=== PATIENT | female | born 1980 | race Caucasian/White ===

== ENCOUNTER 2017-03-27 18:32 | Emergency (ER) | payer OTHER ==
[~2017-03-27] VITALS: Ht 167.6 cm; Wt 99.8 kg
[~2017-03-27 18:32] MED LIST: ACETAMINOPHEN-120 ML PO; ACTONEL; ALPRAZOLAM ER1 MG PO; AMITIZA 24 MCG24 MC1 PO; APAP/CODEINE ELI5 M1 OR; AZITHROMYCIN 2250 MG PO; CALTRATE-600 W1 EACH PO; CENTRUM SILVER1 EACH PO; CHERACOL COUGH120 ML PO; CIPROFLOXACIN500 M1 PO; CLONAZEPAM 1 MG1 M1 PO; CYMBALTA60 MG PO; DIOVAN160 MG PO; ESTER-C500 M1 PO; FISHOIL; GAVISCON500 MG PO; GLUCOSAMINE &1 EACH PO; GLUMETZA500 PO; IBUPROFEN 600600 M1 PO; JANUVIA100 MG PO; LEVOXYL75 MCG PO; LYRICA; METROGEL-VAGINA70 GM VG; MUCINEX600 MG PO; NEXIUM40 MG PO; NORCO 5-325 TA1 EACH PO; NORFLEX100 MG PO; PHENERGAN 25 MG25 M1 PO; PROAIR HFA8.5 GM IH; PROVENTIL HFA6.7 G1 INH; PROZAC20 MG PO; ROBAFEN AC SYR120 ML PO; SEROQUEL XR 30300 MG; SEROQUEL XR150 MG PO; SYNTHROID137 MCG PO; VENTOLIN HFA 1818 GM INH; VITAMIN D400 UNI1 PO; WELCHOL 625 MG625 MG PO; ZANTAC 150MG T150 M1 PO; ZPAK PO; [UNRECOGNIZED DRUG - OTHER] TP; lacrilube; metanx
[2017-03-27] MEDS ORDERED: NAPROSYN500 MG PO ×2 (21:23→21:24)
[2017-03-27 21:25] VITALS: BP 133/81
[2017-03-27] MEDS ORDERED: HYDROCODONE-AP1 EAC6 PO (21:27)
== END 2017-03-27 21:31 | disposition home or self-care (01) ==
LOC: ER 18:32
DX: S83.91XA Sprain of unspecified site of right knee, initial encounter (principal); E03.9 Hypothyroidism, unspecified; F17.200 Nicotine dependence, unspecified, uncomplicated; F10.99 Alcohol use, unspecified with unspecified alcohol-induced disorder; F12.10 Cannabis abuse, uncomplicated; Z90.49 Acquired absence of other specified parts of digestive tract; Z98.890 Other specified postprocedural states; V89.2XXA Person injured in unspecified motor-vehicle accident, traffic, initial encounter; Y93.89 Activity, other specified; Y92.89 Other specified places as the place of occurrence of the external cause; Y99.8 Other external cause status

== ENCOUNTER 2019-01-25 05:34 | Emergency (ER) | payer OTHER ==
[~2019-01-25] VITALS: Ht 167.6 cm; Wt 117.9 kg
[~2019-01-25 05:34] MED LIST changes: +HYDROCODONE-AP1 EAC6 PO; +NAPROSYN500 MG PO
[2019-01-25 06:29] LABS: HEMATOCRIT 27.6 % (37.0-47.0); HEMOGLOBIN 8.1 gm/dL (12.0-15.0); MCH 16.8 pg (26.0-34.0); MCHC 29.3 g/dL (28.0-37.0); MCV 57.4 fL (80.0-100.0); PLATELET COUNT 347 thou/uL (150-400); RBC 4.82 mil/uL (4.20-5.00); RDW 19.3 % (10.5-14.5); WBC 6.9 thou/uL (4.0-11.0)
[2019-01-25 06:32] LABS: ANION GAP 9 mmol/L (7-16); BUN 11 mg/dL (7-18); CALCIUM 8.6 mg/dL (8.5-10.1); CHLORIDE 103 mmol/L (98-107); CO2 25 mmol/L (21-32); CREATININE 0.7 mg/dL (0.6-1.0); GLUCOSE 111 mg/dL (74-106); POTASSIUM 3.1 mmol/L (3.5-5.1); SODIUM 137 mmol/L (136-145)
[2019-01-25 06:38] LABS: ALBUMIN 3.5 g/dL (3.4-5.0); LIPASE 100 U/L (73-393); SGOT 12 U/L (15-37); SGPT 16 U/L (30-65); TOTAL BILIRUBIN < 0.1 mg/dL (<0.1-1.0); TOTAL PROTEIN 7.6 g/dL (6.4-8.2)
[2019-01-25 07:33] LABS: URINE BILIRUBIN NEGATIVE (Negative); URINE BLOOD NEGATIVE (Negative); URINE COLOR YELLOW; URINE GLUCOSE-RANDOM* NEGATIVE (Negative); URINE KETONES TRACE (Negative); URINE LEUKOCYTES-REFLEX NEGATIVE (Negative); URINE NITRITE-REFLEX NEGATIVE (Negative); URINE PROTEIN (DIPSTICK) NEGATIVE (Negative); URINE SPECIFIC GRAVITY 1.025 (1.005-1.035); URINE UROBILINOGEN 0.2 E.U./dl (0.2-1.0)
[2019-01-25 07:34] LABS: URINE CLARITY HAZY
[2019-01-25 07:53] LABS: ABSOLUTE NEUTROPHILS 4.8 thou/uL (1.4-8.2); NUCLEATED RBCS 1 /100WBC
[2019-01-25 07:54] LABS: ANISOCYTOSIS 2+; HYPOCHROMASIA 3+; MICROCYTES 3+; OVALOCYTES FEW
[2019-01-25] MEDS ORDERED: LOPERAMIDE 2 MG2 M1 PO (09:58)
[2019-01-25] MEDS ORDERED: PHENERGAN 25 MG25 MG PO (09:58)
[2019-01-25 10:16] VITALS: BP 122/65
== END 2019-01-25 10:30 | disposition home or self-care (01) ==
LOC: ER 05:34
PROVIDERS: Emergency Medicine
DX: K52.9 Noninfective gastroenteritis and colitis, unspecified (principal); E03.9 Hypothyroidism, unspecified; Z90.49 Acquired absence of other specified parts of digestive tract

== ENCOUNTER 2021-04-05 00:21 | Emergency (ER) | payer OTHER ==
[~2021-04-05] VITALS: Ht 167.6 cm; Wt 108.9 kg
--- NOTE | ~2021-04-05 | EMS ---
[address] [address] EMS Patient Care Report Name: YONY MUNOZ Room #: PRE [place]#: [id number] Admission: Attend Phys: Discharge: Date of : 80 Report #: [id number] THIS REPORT FOR: //name// Report Transmitted: 04/04/2021 23:53 EMS Care Summary [place], [place]/[facility] Incident [id number] @ 04/04/2021 23:50 Incident Location [address] [place] [address] Patient YONY MUNOZ Female, 40 Years 1980 Patient Address [address] [place], [place] [id number] Patient History Bipolar II Disorder,Anxiety, Patient Allergies No known allergies, Patient Medications Xanax, Chief Complaint ABDOMINAL PAIN Disposition Transported No Lights/[place] Dispatch Reason Sick Person Transported To [facility] Narrative M528 ARRIVES TO FIND 40 Y/O F PT COMPLAINING OF A SUDDEN ONSET OF NAUSEA, VOMITING, DIARRHEA, AND ABDOMINAL PAIN. [address] [address] EMS Patient Care Report Name: YONY MUNOZ Room #: [facility].R.#: [id number] Admission: Attend Phys: Discharge: Date of : 80 Report #: [id number] ASSESSMENTS AND TREATMENTS NOTED. PT AMBULATORY AND WAKS TO AMBULANCE. PT SECURED TO COT. PT TRANSPORTED. M528 ARRIVES AT DESTINATION. PT AMBULATORY AND WALKS TO BED IN ROOM AT DESTINATION. PT CARE TRANSFERRED. M528 RETURNS TO SERVICE. Initial Vitals @00:02P: 84,BP: 116/72,CO: 2,SpO2: 96, @00:00P: 89,R: 18,BP: 127/76,Pain: 7/10,GCS: 15,Glucose: 160,CO: 1,SpO2: 97,Revised Trauma: 12, @00:06P: 87,R: 18,BP: 111/70,Pain: 7/10,GCS: 15,CO: 3,SpO2: 96,Revised Trauma: 12, Assessments @00:15MENTAL:No Abnormalities,SKIN:No Abnormalities,HEENT:Head/Face: No Abnormalities,Eyes: No Abnormalities,Neck/Airway: No Abnormalities,LUNG SOUNDS:General: Nausea,Left Upper: Tenderness,Right Lower: Tenderness,Left Lower: Tenderness,Right Upper: Tenderness,ABDOMEN:General: Nausea,Left Upper: Tenderness,Right Lower: Tenderness,Left Lower: Tenderness,Right Upper: Tenderness,PELVIS//GI:No Abnormalities,EXTREMITIES:Left Arm: No Abnormalities,Right Arm: No Abnormalities,Left Leg: No Abnormalities,Right Leg: No Abnormalities,PULSE:NEURO:No Abnormalities,@00:00MENTAL:Person Oriented,Event Oriented,Time Oriented,Place Oriented,SKIN:HEENT:LUNG SOUNDS:General: Vomiting,General: Diarrhea,General: Nausea,Left Upper: Tenderness,Right Lower: Tenderness,Right Upper: Tenderness,Left Lower: Tenderness,ABDOMEN:General: Vomiting,General: Diarrhea,General: Nausea,Left Upper: Tenderness,Right Lower: Tenderness,Right Upper: Tenderness,Left Lower: Tenderness,PELVIS//GI:EXTREMITIES:PULSE:NEURO: Impression Abdominal Pain Procedures @00:00ALS AssessmentResponse: UnchangedSucceeded@00:05Saline Lock 0cc (20 ga) Site: Hand-LeftResponse: UnchangedSucceeded@00:003-Lead ECGResponse: UnchangedSucceeded@00:08Zofran - 4 Milligrams (mg) - Intravenous (IV)Response: Unchanged Timeline 23:47,Call Received 23:47,Dispatch Notified 23:50,Dispatched 23:52,En Route 23:57,On Scene 00:00,At Patient 00:00,ALS Assessment,Response: UnchangedSucceeded, 00:00,3-Lead ECG,Response: UnchangedSucceeded, [address] [address] EMS Patient Care Report Name: YONY MUNOZ Room #: PRE M.R.#: [id number] Admission: Attend Phys: Discharge: Date of : 80 Report #: [id number] 00:00,BP: 127/76 M,PULSE: 89,RR: 18 R,SPO2: 97 Ox,ETCO2: ,B,PAIN: 7,GCS: 15, 00:02,BP: 116/72 M,PULSE: 84,RR: R,SPO2: 96 Ox,ETCO2: ,BG: ,PAIN: ,GCS: , 00:05,Saline Lock 0cc 20 ga Site: Hand-Left,Response: UnchangedSucceeded, 00:06,BP: 111/70 M,PULSE: 87,RR: 18 R,SPO2: 96 Ox,ETCO2: ,BG: ,PAIN: 7,GCS: 15, 00:08,Zofran - 4 Milligrams (mg) - Intravenous (IV),Response: Unchanged 00:09,Depart Scene 00:17,At Destination 00:28,Call Closed Disclaimer v1.1 Copyright 2020 [employer] This EMS Care Summary contains data elements from the applicable legal record (which may be displayed differently). It is designed to provide pertinent information for the following purposes: continuity of care, clinical quality, and state data reporting. The complete legal record is available to ED staff and administrators of the receiving hospital in [employer]'s Patient Tracker. All data is provided "as is."
[~2021-04-05 00:21] MED LIST changes: +LOPERAMIDE 2 MG2 M1 PO; +PHENERGAN 25 MG25 MG PO
[2021-04-05] MEDS ORDERED: XANAX XR1 MG PO (00:35)
[2021-04-05 00:36] LABS: ABSOLUTE NEUTROPHILS 9.6 thou/uL (1.4-8.2); BASOPHILS 0.7 % (0.0-2.0); EOSINOPHILS 0.7 % (0.0-3.0); HEMOGLOBIN 8.1 gm/dL (12.0-15.0); LYMPHOCYTES 13.8 % (24.0-44.0); MCH 16.9 pg (26.0-34.0); MCHC 28.8 g/dL (28.0-37.0); MCV 58.7 fL (80.0-100.0); MONOCYTES 4.1 % (1.0-8.0); PLATELET COUNT 468 thou/uL (150-400); POLYS 80.7 % (36.0-66.0); RBC 4.77 mil/uL (4.20-5.00); RDW 19.3 % (10.5-14.5); WBC 11.9 thou/uL (4.0-11.0)
[2021-04-05 00:53] LABS: CALCIUM 8.2 mg/dL (8.5-10.1); CREATININE 0.8 mg/dL (0.6-1.0); POTASSIUM 3.4 mmol/L (3.5-5.1)
[2021-04-05 00:59] LABS: ALBUMIN 3.1 g/dL (3.4-5.0); TOTAL BILIRUBIN 0.2 mg/dL (0.2-1.0); TOTAL PROTEIN 7.1 g/dL (6.4-8.2)
[2021-04-05 01:50] LABS: URINE BILIRUBIN NEGATIVE (Negative); URINE BLOOD NEGATIVE (Negative); URINE CLARITY CLOUDY; URINE COLOR YELLOW; URINE GLUCOSE-RANDOM* NEGATIVE (Negative); URINE KETONES NEGATIVE (Negative); URINE LEUKOCYTES-REFLEX NEGATIVE (Negative); URINE NITRITE-REFLEX NEGATIVE (Negative); URINE PROTEIN (DIPSTICK) NEGATIVE (Negative); URINE SPECIFIC GRAVITY >= 1.030 (1.005-1.035); URINE UROBILINOGEN 0.2 E.U./dl (0.2-1.0)
[2021-04-05] MEDS ORDERED: ZOFRAN ODT4 MG PO (02:00)
[2021-04-05 02:49] VITALS: BP 106/59
== END 2021-04-05 02:52 | disposition home or self-care (01) ==
LOC: ER 00:21
PROVIDERS: Emergency Medicine
DX: K52.9 Noninfective gastroenteritis and colitis, unspecified (principal); E03.9 Hypothyroidism, unspecified; Z90.49 Acquired absence of other specified parts of digestive tract; Z79.899 Other long term (current) drug therapy; Z72.89 Other problems related to lifestyle; Z20.822 Contact with and (suspected) exposure to COVID-19

== ENCOUNTER 2021-04-15 11:33 | Emergency (ER) | payer OTHER ==
[~2021-04-15] VITALS: Ht 167.6 cm; Wt 108.9 kg
[~2021-04-15 11:33] MED LIST changes: +XANAX XR1 MG PO; +ZOFRAN ODT4 MG PO
[2021-04-15 12:12] LABS: ABSOLUTE NEUTROPHILS 7.7 thou/uL (1.4-8.2); BASOPHILS 0.7 % (0.0-2.0); EOSINOPHILS 0.5 % (0.0-3.0); HEMATOCRIT 29.4 % (37.0-47.0); HEMOGLOBIN 8.9 gm/dL (12.0-15.0); LYMPHOCYTES 16.6 % (24.0-44.0); MCH 17.5 pg (26.0-34.0); MCHC 30.2 g/dL (28.0-37.0); MCV 58.1 fL (80.0-100.0); MONOCYTES 5.8 % (1.0-8.0); PLATELET COUNT 612 thou/uL (150-400); POLYS 76.4 % (36.0-66.0); RBC 5.06 mil/uL (4.20-5.00); RDW 18.6 % (10.5-14.5); WBC 10.1 thou/uL (4.0-11.0)
[2021-04-15 12:23] LABS: ANION GAP 14 mmol/L (7-16); BUN 11 mg/dL (7-18); CHLORIDE 103 mmol/L (98-107); CO2 20 mmol/L (21-32); CREATININE 0.9 mg/dL (0.6-1.0); GLUCOSE 121 mg/dL (74-106); POTASSIUM 3.8 mmol/L (3.5-5.1); SODIUM 137 mmol/L (136-145)
[2021-04-15 12:29] LABS: ALBUMIN 3.9 g/dL (3.4-5.0); DIRECT BILIRUBIN < 0.1 mg/dL (<0.1-0.2); LIPASE 91 U/L (73-393); SGOT 18 U/L (15-37); SGPT 48 U/L (14-59); TOTAL BILIRUBIN 0.4 mg/dL (0.2-1.0); TOTAL PROTEIN 8.5 g/dL (6.4-8.2)
[2021-04-15 13:28] LABS: URINE BLOOD 2+ (Negative); URINE CLARITY CLEAR; URINE COLOR YELLOW; URINE GLUCOSE-RANDOM* NEGATIVE (Negative); URINE KETONES NEGATIVE (Negative); URINE LEUKOCYTES-REFLEX NEGATIVE (Negative); URINE NITRITE-REFLEX NEGATIVE (Negative); URINE PROTEIN (DIPSTICK) 1+ (Negative); URINE SPECIFIC GRAVITY >= 1.030 (1.005-1.035); URINE UROBILINOGEN 0.2 E.U./dl (0.2-1.0)
[2021-04-15 13:33] LABS: ICTOTEST (BILI CONFIRMATORY) Negative (Negative); URINE BILIRUBIN NEGATIVE (Negative)
[2021-04-15 13:43] LABS: CASTS None Seen /LPF (None Seen); MUCUS >6 Heavy strn/LPF (None Seen); SQUAMOUS 4-10 Moderate /LPF (0-3)
[2021-04-15 13:44] LABS: BACTERIA-REFLEX 1-9 Few /HPF (None Seen); CRYSTALS None Seen /LPF (None Seen); URINE RBC 1-2 Rare /HPF (NONE SEEN); URINE WBC-REFLEX 0-5 Rare /HPF (0-5)
[2021-04-15 14:21] LABS: ANISOCYTOSIS 2+; HYPOCHROMASIA 3+; MICROCYTES 3+
[2021-04-15] MEDS ORDERED: CARAFATE 1 GM TA1 G1 PO (14:36)
[2021-04-15] MEDS ORDERED: OMEPRAZOLE40 MG PO (14:36)
[2021-04-15] MEDS ORDERED: ONDANSETRON HCL4 M2 PO (14:36)
[2021-04-15 14:41] VITALS: BP 113/66
== END 2021-04-15 14:41 | disposition home or self-care (01) ==
LOC: ER 11:33
PROVIDERS: Nurse Practitioner
DX: R11.2 Nausea with vomiting, unspecified (principal); R19.7 Diarrhea, unspecified; R10.9 Unspecified abdominal pain; E03.9 Hypothyroidism, unspecified; Z90.49 Acquired absence of other specified parts of digestive tract; Z98.890 Other specified postprocedural states; Z86.2 Personal history of diseases of the blood and blood-forming organs and certain disorders involving the immune mechanism

== ENCOUNTER 2021-05-04 00:13 | Inpatient (IN) | payer OTHER ==
[~2021-05-04] VITALS: Ht 167.6 cm; Wt 115.7 kg
--- NOTE | ~2021-05-04 | EMS ---
[address] [address] EMS Patient Care Report Name: YONY MUNOZ Room #: 355-P ADM IN M.R.#: [id number] Admission: 05/04/21 Attend Phys: Adeline Timmons MD Discharge: Date of : 80 Report #: [id number] THIS REPORT FOR: //name// Report Transmitted: 05/05/2021 08:50 EMS Care Summary [place], [place]/[facility] Incident [id number] @ 05/03/2021 23:28 Incident Location [address] [place] [address] Patient YONY MUNOZ Female, 40 Years 1980 Patient Address [address] [place] [address] Patient History Bipolar II Disorder,Anxiety,Novel Coronavirus (COVID-19), Patient Allergies No known allergies, Patient Medications Xanax, Chief Complaint fever/cough Disposition Transported No Lights/[place] Dispatch Reason Breathing Problem Transported To [facility] Narrative pt found seated in chair, a&o, c/o fever, dry cough, SOB x 1 wk. pt is not vaccinated. she has been taking OTC meds for fever. she req eval at [facility]. [address] [address] EMS Patient Care Report Name: YONY MUNOZ Room #: 355-P ADM IN M.R.#: [id number] Admission: 05/04/21 Attend Phys: Adeline Timmons MD Discharge: Date of : 80 Report #: [id number] pt to cot, transport w/o change. masked for transport. Initial Vitals @23:58P: 82,R: 18,BP: 102/61,GCS: 15,SpO2: 89,Revised Trauma: 12, Assessments @23:39MENTAL:No Abnormalities,SKIN:Hot,HEENT:Head/Face: No Abnormalities,LUNG SOUNDS:ABDOMEN:PELVIS//GI:EXTREMITIES:PULSE:NEURO:No Abnormalities, Impression Shortness of breath Procedures @23:39ALS AssessmentResponse: Unchanged@23:43StretcherResponse: Unchanged Timeline 23:26,Dispatch Notified 23:28,Dispatched 23:29,En Route 23:37,On Scene 23:39,At Patient 23:39,ALS Assessment,Response: Unchanged 23:43,Stretcher,Response: Unchanged 23:48,Depart Scene 23:58,BP: 102/61 M,PULSE: 82,RR: 18 R,SPO2: 89 Ox,ETCO2: ,BG: ,PAIN: ,GCS: 15, 00:09,At Destination 00:14,Call Closed 23:26,Call Received Disclaimer v1.1 Copyright 2020 [email or web address] This EMS Care Summary contains data elements from the applicable legal record (which may be displayed differently). It is designed to provide pertinent information for the following purposes: continuity of care, clinical quality, and state data reporting. The complete legal record is available to ED staff and administrators of the receiving hospital in [facility]'s Patient Tracker. All data is provided "as is."
--- NOTE | ~2021-05-04 | EMS ---
[address] [address] EMS Patient Care Report Name: YONY MUNOZ Room #: 355-P ADM IN M.R.#: [id number] Admission: 05/04/21 Attend Phys: Adeline Timmons MD Discharge: Date of : 80 Report #: [id number] THIS REPORT FOR: //name// Report Transmitted: 05/06/2021 11:27 EMS Care Summary [place], [place]/[facility] Incident [id number] @ 05/03/2021 23:28 Incident Location [address] [place] [address] Patient YONY MUNOZ Female, 40 Years 1980 Patient Address [address] [place] [address] Patient History Bipolar II Disorder,Anxiety,Novel Coronavirus (COVID-19), Patient Allergies No known allergies, Patient Medications Xanax, Chief Complaint fever/cough Disposition Transported No Lights/[place] Dispatch Reason Breathing Problem Transported To [facility] Narrative pt found seated in chair, a&o, c/o fever, dry cough, SOB x 1 wk. pt is not vaccinated. she has been taking OTC meds for fever. she req eval at [facility]. [address] [address] EMS Patient Care Report Name: YONY MUNOZ Room #: 355-P ADM IN M.R.#: [id number] Admission: 05/04/21 Attend Phys: Adeline Timmons MD Discharge: Date of : 80 Report #: [id number] pt to cot, transport w/o change. masked for transport. Initial Vitals @23:58P: 82,R: 18,BP: 102/61,GCS: 15,SpO2: 89,Revised Trauma: 12, Assessments @23:39MENTAL:No Abnormalities,SKIN:Hot,HEENT:Head/Face: No Abnormalities,LUNG SOUNDS:ABDOMEN:PELVIS//GI:EXTREMITIES:PULSE:NEURO:No Abnormalities, Impression Shortness of breath Procedures @23:39ALS AssessmentResponse: Unchanged@23:43StretcherResponse: Unchanged Timeline 23:26,Dispatch Notified 23:28,Dispatched 23:29,En Route 23:37,On Scene 23:39,At Patient 23:39,ALS Assessment,Response: Unchanged 23:43,Stretcher,Response: Unchanged 23:48,Depart Scene 23:58,BP: 102/61 M,PULSE: 82,RR: 18 R,SPO2: 89 Ox,ETCO2: ,BG: ,PAIN: ,GCS: 15, 00:09,At Destination 00:14,Call Closed 23:26,Call Received Disclaimer v1.1 Copyright 2020 [employer] This EMS Care Summary contains data elements from the applicable legal record (which may be displayed differently). It is designed to provide pertinent information for the following purposes: continuity of care, clinical quality, and state data reporting. The complete legal record is available to ED staff and administrators of the receiving hospital in [facility]'s Patient Tracker. All data is provided "as is."
[~2021-05-04 00:13] MED LIST changes: +CARAFATE 1 GM TA1 G1 PO; +OMEPRAZOLE40 MG PO; +ONDANSETRON HCL4 M2 PO
[2021-05-04 00:14] VITALS: BP 116/44
[2021-05-04] MEDS ORDERED: METFORMIN HCL500 M3 PO (00:20)
[2021-05-04 01:23] LABS: ABSOLUTE NEUTROPHILS 2.1 thou/uL (1.4-8.2); BASOPHILS 0.3 % (0.0-2.0); HEMATOCRIT 26.6 % (37.0-47.0); HEMOGLOBIN 7.7 gm/dL (12.0-15.0); LYMPHOCYTES 30.8 % (24.0-44.0); MCH 16.8 pg (26.0-34.0); MCHC 28.9 g/dL (28.0-37.0); MCV 58.1 fL (80.0-100.0); MONOCYTES 9.4 % (1.0-8.0); PLATELET COUNT 257 thou/uL (150-400); POLYS 59.5 % (36.0-66.0); RBC 4.57 mil/uL (4.20-5.00); RDW 18.6 % (10.5-14.5); WBC 3.5 thou/uL (4.0-11.0)
[2021-05-04 01:43] LABS: ALBUMIN 2.8 g/dL (3.4-5.0); CALCIUM 7.8 mg/dL (8.5-10.1); CREATININE 0.8 mg/dL (0.6-1.0); POTASSIUM 3.3 mmol/L (3.5-5.1); TOTAL BILIRUBIN 0.3 mg/dL (0.2-1.0); TOTAL PROTEIN 7.4 g/dL (6.4-8.2)
[2021-05-04 02:35] LABS: ANISOCYTOSIS 2+; HYPOCHROMASIA 3+; MICROCYTES 3+; POLYCHROMASIA 1+
[2021-05-04 20:45] VITALS: BP 91/58
[2021-05-04 20:53] VITALS: BP 91/58
--- NOTE | 2021-05-05 00:12 | NUR ---
PT BROUGHT UP BY ED IN W/C. O2 PER NC. LUNGS COARSE, LOOSE COUGH. PT VERY LETHARGIC BUT WHEN AROUSED PT ABLE TO HOLD CONVERSATION ASK QUESTIONS AND ANSWER HISTORY QUESTIONS. REQUESTED FOOD TO EAT AND PROVIDED. IVF INTACT. BED ALARM ON.
[2021-05-05 02:53] VITALS: BP 108/67
--- NOTE | 2021-05-05 06:11 | NUR ---
PT DECLINED WANTING ASSISTANCE CHANGING HER CLOTHES TO GOWNS OR REMOVAL OF PANTS. PT REMAINS VERY LETHARGIC BUT EASILY AROUSES FOR CONVERSATION WHEN PROMPTED BY NURSE.
[2021-05-05 07:57] LABS: HEMATOCRIT 27.9 % (37.0-47.0); MCH 16.9 pg (26.0-34.0); MCHC 28.7 g/dL (28.0-37.0); RBC 4.73 mil/uL (4.20-5.00); RDW 19.5 % (10.5-14.5); WBC 2.2 thou/uL (4.0-11.0)
[2021-05-05 07:58] VITALS: BP 98/61
[2021-05-05 08:34] LABS: ALBUMIN 2.5 g/dL (3.4-5.0); ANION GAP 8 mmol/L (7-16); BUN 12 mg/dL (7-18); CALCIUM 8.2 mg/dL (8.5-10.1); CHLORIDE 103 mmol/L (98-107); CO2 30 mmol/L (21-32); CREATININE 0.6 mg/dL (0.6-1.0); DIRECT BILIRUBIN < 0.1 mg/dL (<0.1-0.2); GLUCOSE 135 mg/dL (74-106); PHOSPHORUS 3.6 mg/dL (2.5-4.9); POTASSIUM 3.8 mmol/L (3.5-5.1); SGOT 45 U/L (15-37); SGPT 23 U/L (30-65); SODIUM 141 mmol/L (136-145); TOTAL BILIRUBIN 0.2 mg/dL (0.2-1.0); TOTAL PROTEIN 7.2 g/dL (6.4-8.2)
[2021-05-05 11:58] LABS: % SATURATION 5 % (20-39); IRON 17 ug/dL (50-170); TIBC 376 ug/dL (250-450)
--- NOTE | 2021-05-05 12:18 | HC ---
[facility] [place] [address] CONSULTATION Name: YONY MUNOZ Room #: 355-P ADM IN M.R.#: [id number] Admission: 05/04/21 Attend Phys: Adeline Timmons MD Discharge: Date of : 80 Report #: [id number] THIS REPORT FOR: cc: Iraida Linda,Feliz Freeman MD ~ DATE OF SERVICE: 05/04/2021 INFECTIOUS DISEASE CONSULTATION ATTENDING PHYSICIAN: Dr. Stevens. REASON FOR EVALUATION: Pneumonitis in setting of COVID-19 infection with respiratory failure. HISTORY OF PRESENT ILLNESS: Chart reviewed and the patient was examined. This is a 40-year-old woman with history of prediabetes, who has been ill for roughly a week. She noted over the course of last 1-2 days, had increasing dyspnea, did have associated cough, poor p.o. intake. Does complain of some generalized aches and pains, was confirmed to have a positive COVID test. Lactic acid 1.2. Initial CBC showed leukopenia. Chest x-ray showed bilateral interstitial infiltrates. She was noted to have low-grade temperature elevations as well. She is currently requiring supplemental oxygen at 5 liters per nasal cannula. She is given a combination therapy with azithromycin, ceftriaxone, and remdesivir. ALLERGIES: None known. MEDICATIONS: Enoxaparin, ascorbic acid, zinc, cholecalciferol, p.r.n. ondansetron ____ prediabetes. ADDITIONAL MEDICAL HISTORY: Include anemia, anxiety, previous cholecystectomy, hypothyroidism. SOCIAL HISTORY: Former smoker, no ethanol. Occasional illicit drug use, specifically marijuana. FAMILY HISTORY: Noncontributory. REVIEW OF SYSTEMS: Otherwise, unremarkable. PHYSICAL EXAMINATION: GENERAL: She appears ill. She is not inclined to engage too much. She is lying in a right lateral decubitus position. Barely opens her eyes. The efforts increase quite for her breathing. VITAL SIGNS: Temperature 99.7, pulse ____, respirations 15, blood pressure [facility] [address] [place] [address] CONSULTATION Name: YONY MUNOZN Room #: 355-P [facility] IN M.R.#: [id number] Admission: 05/04/21 Attend Phys: Adeline Timmons MD Discharge: Date of : 80 Report #: [id number] 107/59. SKIN: Warm, dry, no rashes. HEENT: Normocephalic. Nasal cannula in place, 5 liters. NECK: Supple. LUNGS: Diminished breath sounds. Few scattered crackles, primarily lower lobes. ABDOMEN: Distended, somewhat firm, nontender. EXTREMITIES: No cyanosis. GENITOURINARY AND RECTAL: Deferred. LABORATORY DATA: Ferritin 135. Electrolytes: Sodium 134, potassium 3.3, chloride 98, bicarbonate is 30, anion gap of 6. BUN and creatinine 6 and 0.8. AST of 61, ALT of 28, albumin 2.8, total protein 7.4. Estimated GFR of 79. Chest x-ray, nodular interstitial opacities throughout both lungs consistent with atypical pneumonia. CBC: White count 3.5, H and H 7.7 and 26.6, platelets of 257. Lactic acid 1.2. test was negative. ASSESSMENT AND PLAN: COVID-19 infection, complicated by pneumonitis and respiratory failure. The patient with underlying at least prediabetes. Also has a fairly pronounced anemia as well. It is not as well defined. We will continue directed therapy against coronavirus. We will add ivermectin, Actemra in addition to corticosteroids, remdesivir, vitamins ____ we will continue empiric therapy for possible secondary bacterial pneumonitis with ceftriaxone. We will introduce incentive spirometry. She remains quite tenuous at this point. We will continue to monitor expectantly. <ELECTRONICALLY SIGNED> By: Feliz Castano MD 05/05/21 1218 [id number] Feliz Castano MD /nt
[2021-05-05 12:30] LABS: FOLIC ACID 7.5 ng/mL (8.6-58.9)
--- NOTE | 2021-05-05 14:44 | NUR ---
40 year old female admits with a history of prediabetes from the ED with fever and chills with body aches and sob x 1 week. pt was not Covid vaccinated . ID NOW is positive in the ED. The patient is listed in the ED and at present as A&O x4. The patient has been admitted with COVID-19 effect complicated by pneumonitis and respiratory failure/diabetes mellitus type 2/severe anemia/obesity. Called and spoke with patients' S/O Trace [phone] who reports he did speak with manager community development Corin merlos AM and she was great help to his issues. Trace reports that currently his [employer] is also a patient on [address] in [place]. He states he understands that everyone is doing what they need to for his s/o. Reports she had called him upset and he in turn he was calling to let others know what she has been telling him. Allowed him to express his emotions and assured him all members of the team including, nursing, RT, MD's and CM are working to provide care for her. He agreed and thanked me for the reassurance. Introduced the role of CM and explained after stabilization of medical condition and therapy evaluations including PT/OT/RT that CM will reach out to him on discharge plan of care. He anticipates she will be able to return home with perhaps home health and possible 02. Told him that the SW will be in touch as this progresses. Also gave him my name and direct line to call for any assistance needed. CM will continue to follow for discharge needs.
--- NOTE | 2021-05-05 14:56 | NUR ---
40 year old female admits with a history of prediabetes from the ED with fever and chills with body aches and Shortness of air for 1 week prior to ED presentation. Noted per MD that pt was not Covid vaccinated . ID NOW is positive in the ED. The patient is listed in the ED and at present as A&O x4. The patient has been admitted with COVID-19 effect complicated by pneumonitis and respiratory failure/diabetes mellitus type 2/severe anemia/obesity. Called and spoke with patients' S/O Trace [phone] who reports he did speak with microfilm duplicating unit supervisor Corin merlos AM and she was great help to his issues. Trace reports that currently his [employer] is also currently a patient, so adds this as a stressor to both he and the patient. He states he understands that everyone is doing what they need to for his s/o. Reports she had called him upset and he in turn he was calling to let others know what she has been telling him. Allowed him to express his emotions and assured him all members of the team including, nursing, RT, MD's and CM are working to provide care for her. He agreed and thanked me for the reassurance. Introduced the role of CM and explained after stabilization of medical condition and therapy evaluations including PT/OT/RT that CM will reach out to him on discharge plan of care. He anticipates she will be able to return home with perhaps home health and possible 02. Told him that the SW will be in touch as this progresses. Also gave him my name and direct line to call for any assistance needed. CM will continue to follow for discharge needs.
[2021-05-05 15:38] VITALS: BP 100/55
--- NOTE | 2021-05-05 19:46 | NUR ---
RN ASSUMED PT'S CARE AT 0700-1900PM, PT IS A&OX4, PT IS ON O2 6L/MIN/NC, PT IS CONTINUING IV ABX AND TREAT COVID MEDICATION, PT STILL HAS WEAKNESS , NEED ASSIST BSC, PT'S VS AND O2SAT ARE STABLE AT DAY SHIFT.
[2021-05-05 19:50] VITALS: BP 103/44
[2021-05-06 04:04] LABS: ALBUMIN 2.3 g/dL (3.4-5.0); ANION GAP 9 mmol/L (7-16); BUN 10 mg/dL (7-18); CHLORIDE 106 mmol/L (98-107); CO2 29 mmol/L (21-32); CREATININE 0.6 mg/dL (0.6-1.0); DIRECT BILIRUBIN < 0.1 mg/dL (<0.1-0.2); GLUCOSE 129 mg/dL (74-106); PHOSPHORUS 3.4 mg/dL (2.6-4.7); POTASSIUM 3.5 mmol/L (3.5-5.1); SGOT 36 U/L (15-37); SGPT 24 U/L (14-59); SODIUM 144 mmol/L (136-145); TOTAL BILIRUBIN 0.2 mg/dL (0.2-1.0); TOTAL PROTEIN 6.4 g/dL (6.4-8.2)
[2021-05-06 04:06] LABS: GLYCOHEMOGLOBIN (HGB A1C) 6.1 % (4.8-5.6)
--- NOTE | 2021-05-06 04:12 | NUR ---
PROGRESS PT A/O X4. UP WITH SBA TO BSC. PT ANGRY AT OUTSET OF SHIFT SHE WANTED TO TAKE A SHOWER BUT SHE HAD BEEN C/O DIZZINESS AND HER BP WAS RUNNING LOW AND I FELT IT WAS UNSAFE FOR HER TO SHOWER. SHE WAS CURSING AT ME "I WANT TO TAKE A FING SHOWER!!!!". I LEFT THE ROOM AND WENT BACK LATER AND SHE HAD APOLOGIZED AND SAID SHE HAD JUST FOUND OUT HER FRIEND HAD IN A CAR ACCIDENT AND SHE WAS UPSET SHE COULDN'T GO TO THE . LUNGS COARSE ALL OVER AND WHEEZY IN THE RIGHT BASE. ON 4 TO 6 LITERS OF O2. PT REPEATEDLY REMOVING IT AND SATS DROPPING INTO THE LOW 80'S. EDUCATED PT ON THE NEED FOR THE OXYGEN FOR BRAIN AND HEART HEALTH. SHE KEPT IT ON WHILE AWAKE AFTER EDUCATION BUT CONTINUED TO REMOVE IT WITH SLEEP. VOIDING QS, HAD 2 LOOSE STOOLS DURING DAY SHIFT, VOIDING QS. DID NOT EAT MUCH OF HER DINNER BUT CHIPS WERE ALL OVER HER BED, FLOOR AND BEDSIDE TABLE. TELEMETRY INTACT READING SR AND SB AT TIMES. IVF'S INFUSING ORDERED AND REMDESIVIR ADMINISTERED ORDERED. CONTINUE POC.
[2021-05-06 04:15] VITALS: BP 110/75
[2021-05-06 07:36] VITALS: BP 119/61
--- NOTE | 2021-05-06 13:35 | NUR ---
SW reviewed chart and spoke with nursing and attending physician. Pt remains in Enhanced Isolation due to COVID. Pt is afebrile and on 5L of O2. Pt did use the bipap overnight. Pt is on IV abx. Remdesivir and Ivermectin started. SW placed call to pt's room. No answer. Plan is for pt to discharge home when medically stable. Therapy is following to assist with recommendations for discharge needs. SW is following to assist as needed with discharge planning.
--- NOTE | 2021-05-06 14:31 | NUR ---
Patient's s/o. Trace reached out to me as he had some concerns as patient at times has been confused when he has spoken to her. Noted this information was being addressed by nursing and Medical team and continual encouragement of patient to keep [address] Trace expressed thanks for the explanation of current medical care and nursing involvement. Encourage him to reach out to me if I can be of any further assist.
--- NOTE | 2021-05-06 17:04 | NUR ---
RN ASSUMED PT'S CARE AT O700AM , PT IS A&OX4 , PT IS ON O2 3L /MIN/NC, PT'S O2SAT STAYS AT 92-95%, PT'S SOB AND WEAKNESS HAVE IMPROVED, PT IS CONTINUING IV ABX AND TREAT COVID MEDICATION, PT 'S VS ARE STABLE BY THIS TIME, PT CAN GO TO BATHROOM WITH 1 ASSIST.
[2021-05-06 18:03] VITALS: BP 122/57
[2021-05-06 19:25] VITALS: BP 12/7
[2021-05-07 04:28] LABS: HEMATOCRIT 24.2 % (37.0-47.0); HEMOGLOBIN 7.2 gm/dL (12.0-15.0); MCH 17.5 pg (26.0-34.0); MCHC 29.9 g/dL (28.0-37.0); MCV 58.5 fL (80.0-100.0); RBC 4.14 mil/uL (4.20-5.00); RDW 19.3 % (10.5-14.5)
[2021-05-07 04:44] VITALS: BP 124/55
[2021-05-07 04:58] LABS: ALBUMIN 2.3 g/dL (3.4-5.0); ANION GAP 10 mmol/L (7-16); BUN 13 mg/dL (7-18); CHLORIDE 108 mmol/L (98-107); CO2 26 mmol/L (21-32); CREATININE 0.7 mg/dL (0.6-1.0); DIRECT BILIRUBIN < 0.1 mg/dL (<0.1-0.2); GLUCOSE 126 mg/dL (74-106); PHOSPHORUS 3.2 mg/dL (2.6-4.7); POTASSIUM 3.3 mmol/L (3.5-5.1); SGOT 29 U/L (15-37); SGPT 18 U/L (14-59); SODIUM 144 mmol/L (136-145); TOTAL BILIRUBIN 0.2 mg/dL (0.2-1.0); TOTAL PROTEIN 5.9 g/dL (6.4-8.2)
--- NOTE | 2021-05-07 05:11 | NUR ---
PROGRESS PT MORE ALERT THIS SHIFT. REQUESTING TO GO AMA. DISCUSSED RISKS INVOLVED AND NEED FOR CONTINUED COVID TREATMENT. SPOKE WITH MOTHER AND S.O. IN REGARDS OF RISK INVOLVED WITH HER GOING AMA. STATED HER SISTER IS A DOCTOR, AND A NURSE AT AND HAS ALL THE COVID MEDS AT HOME. DISCUSSED HER NEED FOR OXYGEN AND THAT SHE WOULD HAVE TO HAVE AN OXIMETRY ACTIVITY TEST TO SEE HOW MUCH OXYGEN SHE WOULD REQUIRE FOR HOME USE. PT VSS BP IN NORMAL RANGE PT MORE ALERT THIS SHIFT. STATED SHE WAS HAVING NON-CARDIAC CHEST PAIN AND REQUESTED XANAX. ORDER FOR XANAX OBTAINED AND TYLENOL GIVEN FOR PAIN WITH EFFECT. 2ND DOSE OF REMDESIVIR INFUSED ORDERED. TELEMETRY INTACT READING SB/SR WITH RATES IN 50'S TO 70'S. IV IN LEFT FOREARM PULLED OUT BY PT BY ACCIDENT NEW 22 G INSERTED IN LOWER LEFT FOREARM. ON 3 LITERS O2 TAKES OFF FREQUENTLY SATS AWAKE AT 94%. ENCOURAGED PT TO LEAVE ON.
[2021-05-07 07:49] VITALS: BP 105/45
[2021-05-07 08:44] VITALS: BP 122/75
--- NOTE | 2021-05-07 11:34 | NUR ---
DISCHARGE NOTE: JOSÉ MIGUEL reviewed chart and spoke with nursing and attending physician. Pt remains in Enhanced Isolation due to COVID. Pt is afebrile and on 3L of O2. Per nursing notes, pt almost left AMA during the security shift supervisor. Per attending physician, pt is medically stable for discharge home today. SW spoke with pt via phone to discuss discharge plan. Pt is agreeable and states her daughter will be able to provide transportation home. SW explained need for home O2 and HH services. Pt verbalized understanding and states she does not want HH services at this time. Pt is agreeable with home O2 if needed. Options for DME discussed. No preference voiced. SW confirmed pt's home address and phone number. SW explained that if she feels that she needs HH after she is discharged, to contact her PCP's office (Dr. Iraida Linda) to assist with coordinating HH. Pt verbalized understanding. Rest/exercise oximetry ordered. JOSÉ MIGUEL faxed home O2 referral to [facility] for review. JOSÉ MIGUEL notified [facility] liaison, who will bring a portable tank to the hospital shortly. Contact info for [facility] placed in pt's discharge summary. Awaiting rest/exercise oximetry and script for O2 at this time. JOSÉ MIGUEL is following to finalize discharge plan.
[2021-05-07 11:38] VITALS: BP 122/75
[2021-05-07] MEDS ORDERED: ZINC SULFATE50 MG PO (14:09)
[2021-05-07] MEDS ORDERED: ACEROLA C500 MG PO (14:10)
[2021-05-07] MEDS ORDERED: VITAMIN D325 MC2 PO (14:10)
[2021-05-07] MEDS ORDERED: PREDNISONE 10 M10 M1 PO (14:10)
[2021-05-07] MEDS ORDERED: OXYGEN MISCELL (14:11)
--- NOTE | 2021-05-07 18:37 | NUR ---
RN ASSUMED PT'S CARE AT 0700-1610PM, PT WAS A&OX4, PT'S SOB AND WEAKNESS HAVE IMPROVED, PT'S VS WERE STABLE, PT WANT TO DC TO HOME, RN RECEIVED DR ORDER TO DC PT TO HOME WITH O2 2L/MIN/NC, PT AND PT'S UNDERSTANDED DC TEACHING WELL , 3W DIAMOND SETTER APPRENTICE SENT PT TO MEET PT'S AT 1610PM.
== END 2021-05-07 16:37 | disposition home or self-care (01) | DRG 177 ==
LOC: ER 00:13 → 3W 02:39 → EROBS 02:39 → 3W 20:49
PROVIDERS: Emergency Medicine; Hospitalist; Nurse Practitioner Family; ADMIT Internal Medicine; ATTEND Internal Medicine
PROC: XW033E5 Introduction of Remdesivir Anti-infective into Peripheral Vein, Percutaneous Approach, New Technology Group 5 (ICD-10-PCS; principal; 2021-05-04)
PROC: 5A0935A Assistance with Respiratory Ventilation, Less than 24 Consecutive Hours, High Flow/Velocity Cannula (ICD-10-PCS; 2021-05-05)
PROC: 5A09357 Assistance with Respiratory Ventilation, Less than 24 Consecutive Hours, Continuous Positive Airway Pressure (ICD-10-PCS; 2021-05-06)
PROC: 5A0935A Assistance with Respiratory Ventilation, Less than 24 Consecutive Hours, High Flow/Velocity Cannula (ICD-10-PCS; 2021-05-07)
DX: U07.1 COVID-19 (principal); J12.82 Pneumonia due to coronavirus disease 2019; J96.01 Acute respiratory failure with hypoxia; E43 Unspecified severe protein-calorie malnutrition; Z68.41 Body mass index [BMI] 40.0-44.9, adult; E03.9 Hypothyroidism, unspecified; E11.9 Type 2 diabetes mellitus without complications; F41.9 Anxiety disorder, unspecified; E87.6 Hypokalemia; F12.90 Cannabis use, unspecified, uncomplicated; E88.09 Other disorders of plasma-protein metabolism, not elsewhere classified; E66.01 Morbid (severe) obesity due to excess calories; D64.9 Anemia, unspecified; I95.9 Hypotension, unspecified; Z90.49 Acquired absence of other specified parts of digestive tract; Z87.891 Personal history of nicotine dependence
CPT/HCPCS: 10879

== ENCOUNTER 2021-07-03 18:12 | Emergency (ER) | payer OTHER ==
[~2021-07-03] VITALS: Ht 167.6 cm; Wt 117.9 kg
[~2021-07-03 18:12] MED LIST changes: +ACEROLA C500 MG PO; +METFORMIN HCL500 M3 PO; +OXYGEN MISCELL; +PREDNISONE 10 M10 M1 PO; +VITAMIN D325 MC2 PO; +ZINC SULFATE50 MG PO
[2021-07-03 18:41] LABS: ANION GAP 11 mmol/L (7-16); BUN 13 mg/dL (7-18); CALCIUM 8.5 mg/dL (8.5-10.1); CHLORIDE 106 mmol/L (98-107); CO2 23 mmol/L (21-32); CREATININE 0.7 mg/dL (0.6-1.0); GLUCOSE 149 mg/dL (74-106); POTASSIUM 4.1 mmol/L (3.5-5.1); SODIUM 140 mmol/L (136-145)
[2021-07-03 18:47] LABS: ALBUMIN 3.4 g/dL (3.4-5.0); DIRECT BILIRUBIN < 0.1 mg/dL (<0.1-0.2); LIPASE 73 U/L (73-393); SGOT 23 U/L (15-37); SGPT 20 U/L (14-59); TOTAL BILIRUBIN 0.2 mg/dL (0.2-1.0); TOTAL PROTEIN 7.6 g/dL (6.4-8.2)
[2021-07-03 18:50] LABS: ABSOLUTE NEUTROPHILS 12.5 thou/uL (1.4-8.2); BASOPHILS 0.4 % (0.0-2.0); EOSINOPHILS 0.8 % (0.0-3.0); HEMATOCRIT 30.4 % (37.0-47.0); HEMOGLOBIN 8.5 gm/dL (12.0-15.0); LYMPHOCYTES 4.3 % (24.0-44.0); MCH 16.8 pg (26.0-34.0); MCHC 27.9 g/dL (28.0-37.0); MCV 60.1 fL (80.0-100.0); MONOCYTES 3.5 % (1.0-8.0); PLATELET COUNT 460 thou/uL (150-400); RBC 5.06 mil/uL (4.20-5.00); WBC 13.7 thou/uL (4.0-11.0)
[2021-07-03 19:16] LABS: HYPOCHROMASIA 3+; MICROCYTES 3+; OVALOCYTES FEW
[2021-07-03 19:17] LABS: ANISOCYTOSIS 2+
[2021-07-03 20:20] LABS: URINE BILIRUBIN NEGATIVE (Negative); URINE BLOOD TRACE (Negative); URINE CLARITY CLEAR; URINE COLOR YELLOW; URINE GLUCOSE-RANDOM* NEGATIVE (Negative); URINE KETONES NEGATIVE (Negative); URINE LEUKOCYTES-REFLEX 1+ (Negative); URINE NITRITE-REFLEX NEGATIVE (Negative); URINE PROTEIN (DIPSTICK) NEGATIVE (Negative); URINE SPECIFIC GRAVITY >= 1.030 (1.005-1.035); URINE UROBILINOGEN 0.2 E.U./dl (0.2-1.0)
[2021-07-03 20:30] LABS: SQUAMOUS 4-10 Moderate /LPF (0-3)
[2021-07-03 20:31] LABS: CASTS None Seen /LPF (None Seen); MUCUS >6 Heavy strn/LPF (None Seen); URINE RBC 1-2 Rare /HPF (NONE SEEN); URINE WBC-REFLEX 0-5 Rare /HPF (0-5)
[2021-07-03 20:32] LABS: CRYSTALS None Seen /LPF (None Seen)
[2021-07-03] MEDS ORDERED: ZOFRAN ODT4 MG PO (22:09)
[2021-07-03 22:16] VITALS: BP 137/79
== END 2021-07-03 22:31 | disposition home or self-care (01) ==
LOC: ER 18:12
PROVIDERS: Emergency Medicine
DX: R11.10 Vomiting, unspecified (principal); R19.7 Diarrhea, unspecified; E03.9 Hypothyroidism, unspecified; E11.9 Type 2 diabetes mellitus without complications; F41.9 Anxiety disorder, unspecified; F12.90 Cannabis use, unspecified, uncomplicated; Z90.49 Acquired absence of other specified parts of digestive tract; Z98.890 Other specified postprocedural states; Z79.891 Long term (current) use of opiate analgesic; Z79.899 Other long term (current) drug therapy